=== PATIENT | female | born 1960 | race African-American/Black ===

== ENCOUNTER 2019-05-08 08:50 | Emergency (ER) | payer OTHER ==
[~2019-05-08] VITALS: Ht 154.9 cm; Wt 91.0 kg
[2019-05-08] MEDS ORDERED: METF-816 PO (09:12)
[2019-05-08] MEDS ORDERED: IBUPROFEN 600MG TABLET PO ONE (10:00)
[2019-05-08 11:47] VITALS: BP 160/78
== END 2019-05-08 11:50 | disposition home or self-care (01) ==
LOC: ER 08:50
DX: M54.2 Cervicalgia (principal); V49.40XA Driver injured in collision with unspecified motor vehicles in traffic accident, initial encounter; Y93.89 Activity, other specified; Y92.410 Unspecified street and highway as the place of occurrence of the external cause; E11.9 Type 2 diabetes mellitus without complications; R03.0 Elevated blood-pressure reading, without diagnosis of hypertension; Z88.6 Allergy status to analgesic agent; Z88.8 Allergy status to other drugs, medicaments and biological substances
CPT/HCPCS: 99284

== ENCOUNTER 2023-03-22 13:18 | Emergency (ER) | payer MEDICARE, OTHER ==
[~2023-03-22] VITALS: Ht 154.9 cm; Wt 86.2 kg
[~2023-03-22 13:18] MED LIST: METF-874 PO
[2023-03-22 13:33] VITALS: BP 158/92; PULSE 82; RESP 16; TEMP 98.5; O2SAT 98
[2023-03-22] MEDS ORDERED: LIDO700A15 TP (14:37)
[2023-03-22] MEDS ORDERED: NAP5EC MT (14:37)
== END 2023-03-22 15:17 | disposition home or self-care (01) ==
LOC: ER 13:18
DX: N81.4 Uterovaginal prolapse, unspecified (principal); I10 Essential (primary) hypertension; E11.9 Type 2 diabetes mellitus without complications; Z88.5 Allergy status to narcotic agent; Z88.6 Allergy status to analgesic agent; Z98.890 Other specified postprocedural states; Z90.710 Acquired absence of both cervix and uterus
CPT/HCPCS: 99283; 99284

== ENCOUNTER 2023-05-20 12:15 | Emergency (ER) | payer MEDICARE, MEDICAID ==
[~2023-05-20] VITALS: Ht 160 cm; Wt 91.0 kg
[~2023-05-20 12:15] MED LIST changes: +LIDO700A15 TP; +NAP5EC MT
[2023-05-20 12:23] VITALS: O2SAT 97
[2023-05-20] MEDS ORDERED: IBUPROFEN 600MG TABLET PO ONE (13:00)
[2023-05-20] MEDS ORDERED: MELO-104 MT (13:33)
[2023-05-20 13:37] VITALS: BP 129/82; PULSE 77; RESP 18; TEMP 98.2
== END 2023-05-20 13:41 | disposition home or self-care (01) ==
LOC: ER 12:15
DX: M25.571 Pain in right ankle and joints of right foot (principal); E11.9 Type 2 diabetes mellitus without complications; I10 Essential (primary) hypertension; Z88.6 Allergy status to analgesic agent; Z88.5 Allergy status to narcotic agent; Z98.890 Other specified postprocedural states
CPT/HCPCS: 73600; 99283